=== PATIENT | female | born 1955 | race Asian ===

== ENCOUNTER 2018-10-15 19:36 | Emergency (ER) | payer SELFPAY ==
[~2018-10-15] VITALS: Ht 152.4 cm; Wt 64.5 kg
[2018-10-15 19:39] VITALS: BP 160/73
== END 2018-10-15 22:03 | disposition left against medical advice (07) ==
LOC: EMS 19:37
DX: M54.5 Low back pain (principal); V49.40XA Driver injured in collision with unspecified motor vehicles in traffic accident, initial encounter; Y93.89 Activity, other specified; Y92.89 Other specified places as the place of occurrence of the external cause; Y99.8 Other external cause status; Z53.21 Procedure and treatment not carried out due to patient leaving prior to being seen by health care provider

== ENCOUNTER 2019-03-22 17:55 | Emergency (ER) | payer MEDICARE ==
[~2019-03-22] VITALS: Ht 152.4 cm; Wt 66.4 kg
[2019-03-22] MEDS ORDERED: CETI10TA59 PO (18:08)
[2019-03-22] MEDS ORDERED: DIPH25 PO (18:08)
[2019-03-22] MEDS ORDERED: PRAMOXINE HCL/BENZYL ALCOHOL 1% 35 GM GEL TP ONE (19:00)
[2019-03-22 19:30] VITALS: BP 148/80
== END 2019-03-22 19:31 | disposition home or self-care (01) ==
LOC: EMS 17:56
DX: R21 Rash and other nonspecific skin eruption (principal); G89.29 Other chronic pain